=== PATIENT | male | born 1945 | race Caucasian/White ===

== ENCOUNTER → 2019-07-02 | Outpatient (CLI) | payer OTHER ==
[~2019-07-02] MED LIST: ASPIR 8181 MG PO; FLECAINIDE ACE100 MG PO; LIPITOR 20 MG T20 M1 PO; LISINOPRIL10 MG PO; LOPRESSOR100 M1 PO; METFORMIN HCL500 MG PO; OMEPRAZOLE 20 M20 M1 PO; XARELTO10 MG PO
== END ==
LOC: SJCVCIMAG 10:59
DX: I70.212 Atherosclerosis of native arteries of extremities with intermittent claudication, left leg (principal)

== ENCOUNTER → 2019-11-08 | Outpatient (CLI) | payer OTHER | LOC: HYPER 09:39 | PROVIDERS: ATTEND Emergency Medicine Emergency Medical Services | DX: E11.621 Type 2 diabetes mellitus with foot ulcer (principal); L97.522 Non-pressure chronic ulcer of other part of left foot with fat layer exposed; E11.40 Type 2 diabetes mellitus with diabetic neuropathy, unspecified; E11.51 Type 2 diabetes mellitus with diabetic peripheral angiopathy without gangrene; B35.1 Tinea unguium; M20.41 Other hammer toe(s) (acquired), right foot; M20.42 Other hammer toe(s) (acquired), left foot; Z87.891 Personal history of nicotine dependence; Z79.84 Long term (current) use of oral hypoglycemic drugs; Z95.1 Presence of aortocoronary bypass graft ==

== ENCOUNTER → 2019-11-29 | Outpatient (CLI) | payer OTHER | LOC: HYPER 09:52 | PROVIDERS: ATTEND Emergency Medicine | DX: E11.621 Type 2 diabetes mellitus with foot ulcer (principal); L97.522 Non-pressure chronic ulcer of other part of left foot with fat layer exposed; E11.40 Type 2 diabetes mellitus with diabetic neuropathy, unspecified; E11.51 Type 2 diabetes mellitus with diabetic peripheral angiopathy without gangrene; M20.41 Other hammer toe(s) (acquired), right foot; M20.42 Other hammer toe(s) (acquired), left foot; Z87.891 Personal history of nicotine dependence; Z95.1 Presence of aortocoronary bypass graft ==

== ENCOUNTER → 2019-12-14 | Outpatient (CLI) | payer OTHER | LOC: HYPER 10:01 | PROVIDERS: ATTEND Emergency Medicine | DX: E11.621 Type 2 diabetes mellitus with foot ulcer (principal); L97.522 Non-pressure chronic ulcer of other part of left foot with fat layer exposed; E11.40 Type 2 diabetes mellitus with diabetic neuropathy, unspecified; E11.51 Type 2 diabetes mellitus with diabetic peripheral angiopathy without gangrene; L84 Corns and callosities; B35.1 Tinea unguium; M20.41 Other hammer toe(s) (acquired), right foot; M20.42 Other hammer toe(s) (acquired), left foot; Z95.1 Presence of aortocoronary bypass graft; Z87.891 Personal history of nicotine dependence; Z79.84 Long term (current) use of oral hypoglycemic drugs ==

== ENCOUNTER → 2019-12-28 | Outpatient (CLI) | payer OTHER | LOC: HYPER 13:17 | PROVIDERS: ATTEND Emergency Medicine | DX: E11.621 Type 2 diabetes mellitus with foot ulcer (principal); L97.522 Non-pressure chronic ulcer of other part of left foot with fat layer exposed; L84 Corns and callosities; E11.40 Type 2 diabetes mellitus with diabetic neuropathy, unspecified; E11.51 Type 2 diabetes mellitus with diabetic peripheral angiopathy without gangrene; B35.1 Tinea unguium; E66.01 Morbid (severe) obesity due to excess calories; M20.41 Other hammer toe(s) (acquired), right foot; M20.42 Other hammer toe(s) (acquired), left foot; Z87.891 Personal history of nicotine dependence; Z95.1 Presence of aortocoronary bypass graft; Z85.6 Personal history of leukemia; Z68.38 Body mass index [BMI] 38.0-38.9, adult ==

== ENCOUNTER → 2020-01-05 | Outpatient (CLI) | payer OTHER | LOC: HYPER 10:47 | PROVIDERS: ATTEND Emergency Medicine | DX: E11.621 Type 2 diabetes mellitus with foot ulcer (principal); L97.522 Non-pressure chronic ulcer of other part of left foot with fat layer exposed; L84 Corns and callosities; B35.1 Tinea unguium; E11.51 Type 2 diabetes mellitus with diabetic peripheral angiopathy without gangrene; E11.40 Type 2 diabetes mellitus with diabetic neuropathy, unspecified; E66.01 Morbid (severe) obesity due to excess calories; M20.41 Other hammer toe(s) (acquired), right foot; M20.42 Other hammer toe(s) (acquired), left foot; Z87.891 Personal history of nicotine dependence; Z95.1 Presence of aortocoronary bypass graft; Z85.6 Personal history of leukemia; Z68.38 Body mass index [BMI] 38.0-38.9, adult ==

== ENCOUNTER → 2020-01-12 | Outpatient (CLI) | payer OTHER | LOC: HYPER 10:35 | PROVIDERS: ATTEND Emergency Medicine | DX: E11.621 Type 2 diabetes mellitus with foot ulcer (principal); L97.522 Non-pressure chronic ulcer of other part of left foot with fat layer exposed; L84 Corns and callosities; E11.40 Type 2 diabetes mellitus with diabetic neuropathy, unspecified; E11.51 Type 2 diabetes mellitus with diabetic peripheral angiopathy without gangrene; E66.01 Morbid (severe) obesity due to excess calories; B35.1 Tinea unguium; M20.41 Other hammer toe(s) (acquired), right foot; M20.42 Other hammer toe(s) (acquired), left foot; Z87.891 Personal history of nicotine dependence; Z95.1 Presence of aortocoronary bypass graft; Z68.38 Body mass index [BMI] 38.0-38.9, adult ==

== ENCOUNTER → 2020-01-17 | Outpatient (CLI) | payer OTHER | LOC: HYPER 13:56 | PROVIDERS: ATTEND Emergency Medicine | DX: E11.621 Type 2 diabetes mellitus with foot ulcer (principal); L97.522 Non-pressure chronic ulcer of other part of left foot with fat layer exposed; L84 Corns and callosities; E11.40 Type 2 diabetes mellitus with diabetic neuropathy, unspecified; E11.51 Type 2 diabetes mellitus with diabetic peripheral angiopathy without gangrene; B35.1 Tinea unguium; E66.01 Morbid (severe) obesity due to excess calories; M20.41 Other hammer toe(s) (acquired), right foot; M20.42 Other hammer toe(s) (acquired), left foot; Z87.891 Personal history of nicotine dependence; Z95.1 Presence of aortocoronary bypass graft; Z85.6 Personal history of leukemia; Z68.38 Body mass index [BMI] 38.0-38.9, adult ==

== ENCOUNTER → 2020-02-01 | Outpatient (CLI) | payer OTHER | LOC: HYPER 09:51 | PROVIDERS: ATTEND Specialist | DX: E11.621 Type 2 diabetes mellitus with foot ulcer (principal); I70.245 Atherosclerosis of native arteries of left leg with ulceration of other part of foot; L97.522 Non-pressure chronic ulcer of other part of left foot with fat layer exposed; L84 Corns and callosities; B35.1 Tinea unguium; E11.40 Type 2 diabetes mellitus with diabetic neuropathy, unspecified; E11.51 Type 2 diabetes mellitus with diabetic peripheral angiopathy without gangrene; M20.41 Other hammer toe(s) (acquired), right foot; M20.42 Other hammer toe(s) (acquired), left foot; Z87.891 Personal history of nicotine dependence; Z95.1 Presence of aortocoronary bypass graft; Z85.6 Personal history of leukemia ==

== ENCOUNTER → 2020-02-08 | Outpatient (CLI) | payer OTHER | LOC: HYPER 14:22 | PROVIDERS: ATTEND Emergency Medicine | DX: E11.621 Type 2 diabetes mellitus with foot ulcer (principal); I70.245 Atherosclerosis of native arteries of left leg with ulceration of other part of foot; L97.522 Non-pressure chronic ulcer of other part of left foot with fat layer exposed; L84 Corns and callosities; B35.1 Tinea unguium; E11.51 Type 2 diabetes mellitus with diabetic peripheral angiopathy without gangrene; E11.40 Type 2 diabetes mellitus with diabetic neuropathy, unspecified; E66.01 Morbid (severe) obesity due to excess calories; M20.41 Other hammer toe(s) (acquired), right foot; M20.42 Other hammer toe(s) (acquired), left foot; Z87.891 Personal history of nicotine dependence; Z95.1 Presence of aortocoronary bypass graft; Z85.6 Personal history of leukemia; Z68.38 Body mass index [BMI] 38.0-38.9, adult ==

== ENCOUNTER → 2020-02-16 | Outpatient (CLI) | payer OTHER | LOC: HYPER 08:38 | PROVIDERS: ATTEND Emergency Medicine | DX: E11.621 Type 2 diabetes mellitus with foot ulcer (principal); I70.245 Atherosclerosis of native arteries of left leg with ulceration of other part of foot; L97.522 Non-pressure chronic ulcer of other part of left foot with fat layer exposed; L84 Corns and callosities; B35.1 Tinea unguium; E11.51 Type 2 diabetes mellitus with diabetic peripheral angiopathy without gangrene; E11.40 Type 2 diabetes mellitus with diabetic neuropathy, unspecified; E66.01 Morbid (severe) obesity due to excess calories; M20.41 Other hammer toe(s) (acquired), right foot; M20.42 Other hammer toe(s) (acquired), left foot; Z87.891 Personal history of nicotine dependence; Z95.1 Presence of aortocoronary bypass graft; Z85.6 Personal history of leukemia; Z68.38 Body mass index [BMI] 38.0-38.9, adult ==

== ENCOUNTER → 2020-03-01 | Outpatient (CLI) | payer OTHER | LOC: HYPER 13:08 | PROVIDERS: ATTEND Emergency Medicine | DX: E11.621 Type 2 diabetes mellitus with foot ulcer (principal); I70.245 Atherosclerosis of native arteries of left leg with ulceration of other part of foot; L97.522 Non-pressure chronic ulcer of other part of left foot with fat layer exposed; L84 Corns and callosities; B35.1 Tinea unguium; E11.51 Type 2 diabetes mellitus with diabetic peripheral angiopathy without gangrene; E11.40 Type 2 diabetes mellitus with diabetic neuropathy, unspecified; E66.01 Morbid (severe) obesity due to excess calories; M20.41 Other hammer toe(s) (acquired), right foot; M20.42 Other hammer toe(s) (acquired), left foot; Z87.891 Personal history of nicotine dependence; Z95.1 Presence of aortocoronary bypass graft; Z85.6 Personal history of leukemia; Z68.38 Body mass index [BMI] 38.0-38.9, adult ==

== ENCOUNTER → 2020-03-08 | Outpatient (CLI) | payer OTHER | LOC: HYPER 13:02 | PROVIDERS: ATTEND Emergency Medicine | DX: E11.621 Type 2 diabetes mellitus with foot ulcer (principal); I70.245 Atherosclerosis of native arteries of left leg with ulceration of other part of foot; L97.522 Non-pressure chronic ulcer of other part of left foot with fat layer exposed; L84 Corns and callosities; B35.1 Tinea unguium; E11.51 Type 2 diabetes mellitus with diabetic peripheral angiopathy without gangrene; E11.40 Type 2 diabetes mellitus with diabetic neuropathy, unspecified; E66.01 Morbid (severe) obesity due to excess calories; M20.41 Other hammer toe(s) (acquired), right foot; M20.42 Other hammer toe(s) (acquired), left foot; Z87.891 Personal history of nicotine dependence; Z95.1 Presence of aortocoronary bypass graft; Z85.6 Personal history of leukemia; Z68.38 Body mass index [BMI] 38.0-38.9, adult ==

== ENCOUNTER → 2020-11-30 | Outpatient (CLI) | payer OTHER | LOC: HYPER 07:41 | PROVIDERS: ATTEND Emergency Medicine | DX: E11.621 Type 2 diabetes mellitus with foot ulcer (principal); L97.422 Non-pressure chronic ulcer of left heel and midfoot with fat layer exposed; S91.302A Unspecified open wound, left foot, initial encounter; L84 Corns and callosities; E11.40 Type 2 diabetes mellitus with diabetic neuropathy, unspecified; E11.51 Type 2 diabetes mellitus with diabetic peripheral angiopathy without gangrene; E66.01 Morbid (severe) obesity due to excess calories; B35.1 Tinea unguium; H54.8 Legal blindness, as defined in USA; I25.10 Atherosclerotic heart disease of native coronary artery without angina pectoris; M20.41 Other hammer toe(s) (acquired), right foot; M20.42 Other hammer toe(s) (acquired), left foot; Z85.6 Personal history of leukemia; Z87.891 Personal history of nicotine dependence; Z95.1 Presence of aortocoronary bypass graft; Z95.828 Presence of other vascular implants and grafts; Z79.84 Long term (current) use of oral hypoglycemic drugs; Z68.38 Body mass index [BMI] 38.0-38.9, adult; X58.XXXA Exposure to other specified factors, initial encounter; Y93.89 Activity, other specified; Y92.89 Other specified places as the place of occurrence of the external cause; Y99.8 Other external cause status ==

== ENCOUNTER → 2020-12-14 | Outpatient (CLI) | payer OTHER | LOC: SJCVCIMAG 08:21 | PROVIDERS: ATTEND Emergency Medicine | DX: I70.249 Atherosclerosis of native arteries of left leg with ulceration of unspecified site (principal); M79.605 Pain in left leg; M79.604 Pain in right leg ==

== ENCOUNTER → 2020-12-14 | Outpatient (CLI) | payer OTHER | LOC: HYPER 08:39 | PROVIDERS: ATTEND Emergency Medicine | DX: E11.621 Type 2 diabetes mellitus with foot ulcer (principal); L97.522 Non-pressure chronic ulcer of other part of left foot with fat layer exposed; S91.302D Unspecified open wound, left foot, subsequent encounter; E11.51 Type 2 diabetes mellitus with diabetic peripheral angiopathy without gangrene; E11.40 Type 2 diabetes mellitus with diabetic neuropathy, unspecified; L84 Corns and callosities; B35.1 Tinea unguium; M20.41 Other hammer toe(s) (acquired), right foot; M20.42 Other hammer toe(s) (acquired), left foot; H54.8 Legal blindness, as defined in USA; I25.10 Atherosclerotic heart disease of native coronary artery without angina pectoris; Z85.6 Personal history of leukemia; Z87.891 Personal history of nicotine dependence; Z79.84 Long term (current) use of oral hypoglycemic drugs; Z79.899 Other long term (current) drug therapy; X58.XXXD Exposure to other specified factors, subsequent encounter ==

== ENCOUNTER → 2021-01-11 | Outpatient (CLI) | payer OTHER | LOC: HYPER 07:26 | PROVIDERS: ATTEND Emergency Medicine | DX: E11.621 Type 2 diabetes mellitus with foot ulcer (principal); L97.522 Non-pressure chronic ulcer of other part of left foot with fat layer exposed; S91.302D Unspecified open wound, left foot, subsequent encounter; E11.51 Type 2 diabetes mellitus with diabetic peripheral angiopathy without gangrene; E11.40 Type 2 diabetes mellitus with diabetic neuropathy, unspecified; L84 Corns and callosities; H54.8 Legal blindness, as defined in USA; B35.1 Tinea unguium; M20.41 Other hammer toe(s) (acquired), right foot; M20.42 Other hammer toe(s) (acquired), left foot; I25.10 Atherosclerotic heart disease of native coronary artery without angina pectoris; Z85.6 Personal history of leukemia; Z95.1 Presence of aortocoronary bypass graft; Z87.891 Personal history of nicotine dependence; Z79.84 Long term (current) use of oral hypoglycemic drugs; Z79.899 Other long term (current) drug therapy; X58.XXXD Exposure to other specified factors, subsequent encounter ==

== ENCOUNTER 2021-01-20 08:01 | Inpatient (IN) | payer OTHER ==
[~2021-01-20] VITALS: Ht 175.3 cm; Wt 133.0 kg
--- NOTE | ~2021-01-20 | HC ---
[facility] [place] [address] CONSULTATION Name: FERNANDO VASQUEZ Room #: 458-P [facility] IN M.R.#: [id number] Admission: 01/20/21 Attend Phys: Katya Olson MD Discharge: Date of : 46 Report #: [id number] THIS REPORT FOR: cc: Jamie Nazario MD, Michele MD [place],Abhilash Church MD ~ DATE OF SERVICE: 01/24/2021 HISTORY OF PRESENT ILLNESS: The patient is a 75-year-old white male with worsening left foot ulcer, new cellulitis, underwent I and D on 01/22/2021 with removal of nonviable tissue. He has a history of diabetes mellitus with peripheral neuropathy and peripheral arterial disease. He has been followed by Podiatry. He currently is nonweightbearing on that left lower extremity. We are seeing him in rehabilitation medicine consultation. PAST MEDICAL HISTORY: Includes coronary artery disease, hypertension, hyperlipidemia, peripheral vascular disease, laparoscopic cholecystectomy, diabetes mellitus, chronic kidney disease stage III, lung nodule, cholecystectomy, peripheral neuropathy, chronic kidney disease, paroxysmal atrial fibrillation status post Watchman, left fem-pop, right fem-pop, legally blind. MEDICATIONS: Please see the full medication listing. ALLERGIES: No known drug allergies. SOCIAL HISTORY: Lives in a house with his , 3 steps in. She has some medical issues herself and uses a cane. The patient had been ambulatory without gait aids premorbidly, although he does have a cane and a walker and apparently has a wheelchair as well. REVIEW OF SYSTEMS: No current complaints of chest pain, shortness of breath or abdominal discomfort. PHYSICAL EXAMINATION: GENERAL: A 75-year-old white male in no obvious distress. VITAL SIGNS: Temperature 36.8, pulse 66, respirations 14, blood pressure 151/57. The patient is alert. HEENT: Appeared to be benign. NEUROLOGIC: Cranial nerves are grossly intact. Appears to be a reasonable historian. He has functional range of motion of both upper extremities, strength is a grade 4/5. DTRs trace to 1. Lower extremities, he is able to move that right lower extremity, no obvious focal weakness. No focal calf swelling. He does have decreased distal sensation with decreased proprioception in the right large toe. Left lower extremity, he is status post the I and D with the left foot dressed. He has decreased sensation of his toes and does [facility] [address] [place] [address] CONSULTATION Name: FERNANDO VASQUEZ Room #: 458-P [facility] IN .R.#: [id number] Admission: 01/20/21 Attend Phys: Katya Olson MD Discharge: Date of : 46 Report #: [id number] have better sensation from the mid calf proximally. He was noted to transfer with max assist to pivot to the wheelchair, although physical therapy apparently had him up doing some hopping nonweightbearing left lower extremity yesterday. ASSESSMENT: A 75-year-old white male with the following problem list: 1. Left foot ulcer with new cellulitis, status post incision and drainage 01/22/2021 of nonviable tissue, is noted to be nonweightbearing left lower extremity, although apparently is allowed to stand pivot for toilet transfers. 2. Diabetes mellitus complicated by peripheral neuropathy and known vasculopathy. 3. Soft tissue abscess, left medial foot, now status post incision and drainage. 4. Peripheral arterial disease. 5. Coronary artery disease, noted to be status post Watchman for paroxysmal atrial fibrillation. 6. Chronic kidney disease. 7. Hypertension. 8. Hyperlipidemia. PLAN: The patient is to receive further occupational therapy later this morning. We would like to see how he tolerates his therapies as I am uncertain if he would be a candidate for an acute 5 North rehabilitation stay or whether he should go to the skilled facility. He would need to be quite independent with transfers, mobility and ADLs as the has her own medical issues and would not be able to assist much. Thank you for asking us to assist. We will be following regarding his rehab therapy needs. By: [id number] Abhilash Barajas MD /nt
[~2021-01-20 08:01] MED LIST changes: +METFORMIN HCL500 M2 PO; -METFORMIN HCL500 MG PO
[2021-01-20 08:02] VITALS: BP 155/45
[2021-01-20 08:56] LABS: ABSOLUTE NEUTROPHILS 7.2 thou/uL (1.4-8.2); BASOPHILS 0.2 % (0.0-2.0); EOSINOPHILS 0.8 % (0.0-3.0); HEMATOCRIT 33.6 % (42.0-52.0); HEMOGLOBIN 11.4 gm/dL (14.0-18.0); LYMPHOCYTES 8.6 % (24.0-44.0); MCH 33.3 pg (26.0-34.0); MCHC 33.8 g/dL (28.0-37.0); MCV 98.6 fL (80.0-100.0); MONOCYTES 7.5 % (1.0-8.0); PLATELET COUNT 217 thou/uL (150-400); POLYS 82.9 % (36.0-66.0); RBC 3.41 mil/uL (4.50-6.00); RDW 13.1 % (10.5-14.5); WBC 8.7 thou/uL (4.0-11.0)
[2021-01-20 08:57] LABS: CALCIUM 8.3 mg/dL (8.5-10.1); CREATININE 1.4 mg/dL (0.7-1.3); POTASSIUM 4.1 mmol/L (3.5-5.1)
[2021-01-20 09:03] LABS: ALBUMIN 3.2 g/dL (3.4-5.0); TOTAL BILIRUBIN 0.9 mg/dL (0.2-1.0); TOTAL PROTEIN 6.6 g/dL (6.4-8.2)
[2021-01-20 11:21] VITALS: BP 135/54
[2021-01-20 11:46] VITALS: BP 159/71
--- NOTE | 2021-01-20 12:45 | NUR ---
ASSUMED PT CARE THIS AM. PT IS ALERT & ORIENTED X4. PT HAS IV SITE ON L WRIST RUNNING NS @75ML/HR. PT STATED HE USES CANE AT HOME. PT IS LEGALLY BLIND. PT AT THE BEDSIDE. FINISHED ADMISSION. PT SPECIAL DELIVERY WORKER DIS WOUND DRESSING AT THE ER ON HIS L FOOT. PT HAS SLEEP APNEA. PT IS ON ROOM AIR. PT USES URINAL. PT ON THE BED EATING LUNCH, BED ON THE LOWEST POSITION, SIDE RAILS UP, CALL LIGHT WITHIN REACH. WILL CONTINUE TO MONITOR PT. FOLLOW POC.
--- NOTE | 2021-01-20 12:48 | NUR ---
ASSUMED PT CARE AT 1145 FROM ED. PT IS ALERT & ORIENTED X4 AND LEGALLY BLIND. PT STATED THAT HE USES CANE AT HOME. PT HAS IV SITE ON L WRIST RUNNING NS @75ML/HR. PT IS ON ROOM AIR. PT HAS SLEEP APNEA AND USES CPAP. PT AUTOMOTIVE MECHANICAL ENGINEER DID WOUND DRESSING AT ER ON L FOOT. FINISHED ADMISSION. PT TOLERATED DIET WELL. PT USES URINAL. PT AT THE BEDSIDE. PT ON THE BED, BED ON THE LOWEST POSITION, SIDE RAILS UP, CALL LIGHT WITHIN REACH. WILL CONTINUE TO MONITOR PT. FOLLOW POC.
[2021-01-20] MEDS ORDERED: FUROSEMIDE 20 M20 MG PO (15:35)
[2021-01-20] MEDS ORDERED: IMDUR 60 MG TAB60 M1 PO (15:37)
[2021-01-20] MEDS ORDERED: TOPROL XL50 MG PO (15:38)
[2021-01-20] MEDS ORDERED: COZAAR 25 MG TA25 M1 PO (15:39)
[2021-01-20] MEDS ORDERED: RANOLAZINE ER500 MG PO (15:41)
[2021-01-20] MEDS ORDERED: SERTRALINE HCL100 MG PO (15:41)
[2021-01-20 16:04] VITALS: BP 127/56
[2021-01-20 20:51] VITALS: BP 13/58
--- NOTE | 2021-01-21 04:00 | NUR ---
POST OP DRSG PRESENT TO LEFT FOOT. PT STANDS BY THE BEDSIDE TO USE URINAL DENIES ANYPAIN. CONTINUEON ABTS AND IV FLUIDS. PPER DR PAL NOTE, HE WILL REMOVE PACKING FROM WOUND ON 01/21. WOUND PICTURE NOT YET TAKEN FOR THIS REASON.
--- NOTE | 2021-01-21 05:03 | HC ---
[facility] [place] [address] CONSULTATION Name: FERNANDO VASQUEZ Room #: 444-P ADM IN M.R.#: [id number] Admission: 01/20/21 Attend Phys: Katya Olson MD Discharge: Date of : 46 Report #: [id number] THIS REPORT FOR: cc: Jamie Nazario MD,Jamie Moran,Darrius Salazar MD ~ DATE OF SERVICE: 01/20/2021 INFECTIOUS DISEASE CONSULTATION ATTENDING PHYSICIAN: Dr. Olson. REASON FOR EVALUATION: Diabetic foot wound, complicated by infection. HISTORY OF PRESENT ILLNESS: Chart reviewed. The patient was examined. This is a 75-year-old gentleman with history of diabetes mellitus, has been complicated by fairly profound peripheral neuropathy. He has had an ongoing issue for 2 years involving his left foot. He states he stepped on a coral in the [facility]. He has had an ulcer since that time, initially underwent treatment by his director revenue. Subsequently, he has been seen by the wound care center over the last 7-8 months. He noted he had a followup of this with Dr. Chavez who felt that there was suspicion of infection. Subsequently, he was admitted for more definitive treatment as well as parenteral antibiotic therapy. He did undergo a bedside I and D today, it was noted to be purulent, medial aspect of the first MTP joint and sent for culture. Started empirically on therapy with vancomycin and Zosyn. He is not overtly ill. He noted he had some anorexia and decreased p.o. intake, although his weight has been stable. No pulmonary complaints. He does have ongoing issues with GI complaints with pain. This has been evaluated previously and he was not diagnosed. ALLERGIES: None. MEDICATIONS: Include Zosyn, hydrocodone, morphine, zolpidem, vancomycin. HOME MEDICATIONS: Include rivaroxaban, omeprazole, metoprolol, atorvastatin, aspirin, lisinopril, metformin, flecainide. PAST MEDICAL HISTORY: Includes hypertension, diabetes mellitus with known vasculopathy, previous fem-pop bypass, cardiac dysrhythmias with ablation, previous cholecystectomy. SOCIAL HISTORY: No illicit drug use. No tobacco use. Occasional ethanol. FAMILY HISTORY: Noncontributory. REVIEW OF SYSTEMS: Otherwise, unremarkable with the exception of the above. [address] [address] CONSULTATION Name: FERNANDO VASQUEZ Room #: 444-P [facility] IN M.R.#: [id number] Admission: 01/20/21 Attend Phys: Katya Olsno MD Discharge: Date of : 46 Report #: [id number] PHYSICAL EXAMINATION: GENERAL: He is alert, cooperative, sitting at the side of the bed. He is not overtly distressed. VITAL SIGNS: Temperature 100.4, pulse 82, respirations 18, blood pressure 127/56. SKIN: Warm, dry, no rashes. HEENT: Normocephalic. Extraocular muscles intact. NECK: Supple. LUNGS: Few scattered crackles, coarse sounds at the bases. HEART: Regular. I do not appreciate a murmur. ABDOMEN: Soft, is distended, somewhat tender. No peritoneal signs. GENITOURINARY AND RECTAL: Deferred. LABORATORY DATA: Arterial Dopplers of the lower extremity showed bypass graft in the region of the left common femoral artery, patent left common femoral artery and superficial femoral artery above the graft. Sed rate of 53. CRP of 127.5. Electrolytes: Sodium 138, potassium 4.1, chloride 102, bicarbonate is 24, anion gap of 12, BUN and creatinine 18 and 1.4, glucose of 254. LFTs are unremarkable. Albumin of 3.2, total protein 6.6. Estimated GFR 50. Coronavirus testing was negative. X-ray of the foot showed no acute osseous abnormalities. ____ swelling soft tissue of the distal foot with some subcutaneous emphysema. CBC: White count of 8.7, H and H 11.4 and 33.6, platelets of 217. ASSESSMENT AND PLAN: Deep infection involving the left foot in the setting of diabetes mellitus and peripheral neuropathy. He has undergone a bedside debridement. We will await those results. Continue empiric therapy. He is not overtly toxic at this point and initial imaging favors absence of osteomyelitis. He has had a chronic wound there in spite of aggressive wound care; certainly, presumably of multifactorial etiology. We will add incentive spirometry. He is at risk for other complications. <ELECTRONICALLY SIGNED> By: Darrius Moran MD 01/21/21 0503 [id number] Darrius Moran MD /nt
[2021-01-21 08:33] VITALS: BP 127/50
--- NOTE | 2021-01-21 08:47 | HC ---
[facility] [place] [address] CONSULTATION Name: FERNANDO VASQUEZ Room #: 444-P ADM IN M.R.#: [id number] Admission: 01/20/21 Attend Phys: Katya Olson MD Discharge: Date of : 46 Report #: [id number] THIS REPORT FOR: cc: Jamie Nazario MD, Michele MD [place],Tye Starr MD ~ DATE OF SERVICE: 01/20/2021 WOUND CARE CONSULTATION NOTE REASON FOR CONSULTATION: Left foot, infected diabetic foot ulcer with left foot cellulitis. HISTORY: The patient is a 75-year-old patient with peripheral vascular disease of the lower extremities, who has had vascular bypass surgery in [place] in the past. He is a diabetic with a chronic diabetic foot ulcer of the left foot on the plantar aspect over the first metatarsal head. He had seen Dr. Perkins [facility] on multiple occasions. He did see Dr. Karen Carcamo in the office this week. Since the time of that office visit, he has had increased redness, swelling, and drainage of the left foot, necessitating emergency room visit. He has been seen in the emergency room and had incision and drainage of the left foot wound over the left plantar first metatarsal head by Dr. Carcamo and the wound packed. His white blood count is 8.7, and he is afebrile. Lower extremity arterial Doppler has been done, which shows some diminished flow and can be compared with previous studies. Due to cellulitis of the left foot, lower leg, he is being admitted for IV antibiotics and observation. PAST MEDICAL HISTORY: 1. Diabetes mellitus type 2 with diabetic foot ulcer. 2. Diabetic peripheral neuropathy. 3. History of blindness. 4. Hypertension. 5. History of arrhythmia. 6. Cardiac ablation. ALLERGIES: No known drug allergies. LABORATORY: Creatinine 1.4, albumin 3.2, white blood count 8.7, hemoglobin 11.4, hematocrit 33.6. Plain x-ray of the foot shows no osseous abnormality. MRI of the left foot is ordered. PAST SURGICAL HISTORY: Bilateral femoral popliteal bypass. PHYSICAL EXAM: GENERAL: Shows a well-appearing elderly gentleman, alert, pleasant, conversant. VITAL SIGNS: Stable. He is afebrile. [address] [address] CONSULTATION Name: FERNANDO VASQUEZ Room #: 444-P ADM IN M.R.#: [id number] Admission: 01/20/21 Attend Phys: Katya Olson MD Discharge: Date of : 46 Report #: [id number] RESPIRATIONS: Unlabored. ABDOMEN: Soft. EXTREMITIES: Lower extremity examination shows some mild redness and swelling of the left lower leg and right foot. He has an ulcer of the left plantar foot of the first metatarsal head. Incision and drainage has been performed, and the wound packed by Dr. Carcamo. IMPRESSION: 1. Infected left foot diabetic plantar ulcer, now with incision and drainage in the emergency room by Dr. Carcamo. 2. Cellulitis of left foot and leg. 3. Diabetic peripheral neuropathy. 4. Peripheral vascular disease of left leg with left foot ulcer. 5. Mild protein calorie malnutrition. PLAN: Admit for IV antibiotics. We will consult Dr. Claire after the patient stabilized for vascular evaluation. MRI of the left foot is ordered to assess for any possibility of osteomyelitis, admitted for IV antibiotics. I will remove the wound pack tomorrow. Keep leg elevated and observe the foot wound and cellulitis. <ELECTRONICALLY SIGNED> By: Tye Lew MD 01/21/21 0847 1020 1102 Tye Lew MD /nt
--- NOTE | 2021-01-21 11:14 | NUR ---
ASSUMED PT CARE THIS AM. PT IS ALERT & ORIENTED X4. OT HAS IV SITE ON L WRIST RUNNING NS @75ML/HR. PT IS LEGALLY BLIND AND USES CANE. PT IS ACCUCHECK ACHS. PT HAS SLEEP APNEA AND USES CPAP AT NIGHT. CALLED CONSULT THIS AM PER DR ORDERED. PT NO C/O OF PAIN, NAUSEA AND VOMITING. INFORMED DR TO RESUME HOME MEDICATION. WILL CONTINUE TO MONITOR PT. FOLLOW POC.
[2021-01-21] MEDS ORDERED: GLIPIZIDE5 MG PO (11:23)
--- NOTE | 2021-01-21 13:02 | HC ---
[facility] [place] [address] CONSULTATION Name: FERNANDO VASQUEZ Room #: 444-P ADM IN M.R.#: [id number] Admission: 01/20/21 Attend Phys: Katya Olson MD Discharge: Date of : 46 Report #: [id number] THIS REPORT FOR: cc: Jamie Nazario MD, Michele MD Jameson, Stephanie L. DPM ~ DATE OF SERVICE: 01/20/2021 HISTORY OF PRESENT ILLNESS: 75 year old male admitted today, 01/19/2021 with left diabetic foot ulcer with cellulitis and possible bone infection. He was seen in my podiatry office yesterday where he had cellulitis and infection and I recommended admission. He has minimal pain to his left foot as he has underlying neuropathy. He was seen in Dr. Tucker's office last week and is followed with him for years. He has had this chronic off and on wound for approximately 2 years. He has had a history of stents to bilateral lower extremities in the past also. He denies any fever, chills, nausea, vomiting. On his lower extremity physical exam, right foot without any breaks in the skin. MIKI: The left foot has an ulceration under big toe joint with redness welling and drainage. . There is some mild tenderness to this wound. With bedside I&D to site left foot: The wound has sloughing like fibroglanular base with some undermining and some yellow-green drainage. With a deep incision and drainage extending about 2 cm distal and proximal. There was some mild serosanguineous drainage expressed coming more so from the proximal medial aspect. With further incision and drainage, there was no further drainage expressed except blood . There was also a 1 cm more medial first MPJ incision made over the most elevated erythematous area without any pus expressed. There were no deep further loculations present. The capillary fill time to all toes is less than 3 seconds. The sensation is diminished bilateral lower extremities. Muscle strength +5/5 in all pedal directions. ASSESSMENT AND PLAN: We have a diabetic left foot ulceration with cellulitis and possible osteomyelitis and abscess. The patient currently afebrile. No leukocytosis. Left foot incision and drainage performed at bedside shortly after admission. [address] [address] CONSULTATION Name: FERNANDO VASQUEZ Room #: 444-P ADM IN M.R.#: [id number] Admission: 01/20/21 Attend Phys: Katya Olson MD Discharge: Date of : 46 Report #: [id number] See procedure note for detail. Wound repacked with quarter-inch iodoform packing. Keep dressing clean, dry and intact to left foot. Nonweightbearing left foot at this time and in future, we will likely transition to bathroom privileges only with a partial forefoot offload wedge shoe. Recommend wound care on board, Dr. Lew at bedside to see wound at this time too. Infectious disease on board. Wound culture obtained in my office yesterday and also again today here at hospital. Recommend MRI, which order is pending. Optimize his nutrition and good glucose control. In regards to vascular, he has had a history of bilateral stents. New arterial duplex has recently been performed. Pending MRI results, but the patient understands he may need further surgery including incision and drainage and/or bone resection. We will follow. Karen Carcamo <ELECTRONICALLY SIGNED> By: Karen Carcamo DPM 01/21/21 1302 1027 [id number] Karen Carcamo DPM /nt
[2021-01-21 17:27] VITALS: BP 129/53
[2021-01-21 20:46] VITALS: BP 126/44
--- NOTE | 2021-01-22 03:45 | NUR ---
PT IS A/O X4 AND IS NWB TO HIS LEFT FOOT. STANDS AND PIVOTS TO BSC. USES URINAL AT THE BEDSIDE. MEDICATIONS GIVEN DIRECTED. DRSG TO FOOT C/D/I. ELEVATED ON PILLOWS. PT IS PLEASANT AND COOPERATIVE. DENIES C/O PAIN OR DISCOMFORT. FALL PRECAUTIONS IN PLACE, CALL LIGHT IS WITHIN REACH. PT C/O INSOMNIA. PRN SLEEP MEDICATION GIVEN DIRECTED.
[2021-01-22 05:29] VITALS: BP 157/61
[2021-01-22 08:00] VITALS: BP 140/77
[2021-01-22 10:07] LABS: CALCIUM 7.8 mg/dL (8.5-10.1); CREATININE 1.1 mg/dL (0.7-1.3)
[2021-01-22 17:40] VITALS: BP 120/43
--- NOTE | 2021-01-22 18:34 | NUR ---
TO THE UNIT FROM OR WHERE PATIENT HAD I&D DONE ON LEFT FOOT POST ANGIOGRAM; GROIND R C/D/I.. DRESSING TO L FOOT C/D/I. PT ORIENTED TO ROOM AND BEDSPACE. KEVEN DIET AND FLUIDS. NO CO'S OF PAIN OR NAUSEA. AT THE BEDSIDE - VOIDED PER URINAL. NO CO'S AT THE PRESENT TIME.
[2021-01-22 19:49] VITALS: BP 135/41
[2021-01-23 00:14] VITALS: BP 124/61
--- NOTE | 2021-01-23 01:49 | NUR ---
PT ALERT AND ORIENTED X4. VSS AFEBRILE. UNLABORED ON RA. NO C/O PAIN. LEFT FOOT DRESSING REMAINS C/D/I/. RIGHT GROIN DRESSING REMAINS C/D/I/. NO HEMATOMA NOTED. R PEDAL PULSE 1+. CLEARLY AUDIBLE WITH DOPPLER . LEFT FOOT PULSE AUDIBLE WITH DOPPLER ABOVE THE SURGICAL DRESSING AND POPLITEAL AND GROIN.ALL EXTREMITIES PINK WARM AND DRY. IV ABX INFUSING. BED DOWN CALL LIGHT IN REACH. BED ALARM IS ON.
[2021-01-23 04:05] VITALS: BP 150/61
--- NOTE | 2021-01-23 05:27 | NUR ---
PT HAS HAD NO C/O TONIGHT OF PAIN. DRESSING TO LEFT FOOT REMAINS C/D/I/. RIGHT GROIN DRESSING C/D/I NO DRAINAGE. NO HEMATOMA NOTED. VSS AFEBRILE. IV ABX INFUSING. PROGRESSING SLOWLY TOWARDS D/C GOALS.
[2021-01-23 05:57] LABS: FOLIC ACID 41.8 ng/mL (8.6-58.9)
[2021-01-23 07:00] VITALS: BP 128/52
[2021-01-23 11:00] VITALS: BP 146/54
--- NOTE | 2021-01-23 13:40 | NUR ---
TRANSFER ORDER TO 4W IN PER HOUSE SUP. PT ALERT AND ORIENTED X4, DENIES PAIN. ON ROOM AIR, NO SIGNS OF DISTRESS. REPORT GIVEN TO MARCOS GRUBBS ON THE 4 TH FLOOR
--- NOTE | 2021-01-23 14:29 | NUR ---
Nutrition: pt S/P I&D Left foot wound. PMH: PAD, DM, CAD, HTN, HLD, CKD. Eating well, 70-90% of meals on heart healthy diet. BG 112-263. Will add Carb Controlled to diet order. Extreme class 3 obesity with BMI 43. Reviewed protein needs for wound healing. Pt would like to try ensure max daily, will order. Pt was in process of moving to 4th floor during visit so education needs not addressed. RD available if needs arise but place as low risk.
[2021-01-23 14:45] VITALS: BP 127/48
--- NOTE | 2021-01-23 16:15 | NUR ---
Case opened to follow for dc planning. Cm role introduced to the pt. He is a&ox4 and indicates he lives at home with his spouse. He reports he is concerned about his change in mobility and care needs and his is recovering from a recent surgery. He is interested in 5N acute rehab or SNF at [facility]. He is s/p I/D of lle abcess and cultures are pending. He is uncertain if he will need iv atb and he is nwb lle at this time. He is working with therapy. His home has 3 steps to enter. He is normally indep without an assistive device but has a w/c. rwalker and cane if needed. He is also legally blind and relies on his to drive him to weekly wound care appts. 5N eval requested. Awaiting ID imput regarding any iv atb needs at dc. Pt transfered to 4W this afternoon from CCU. Will follow.
[2021-01-23 19:10] VITALS: BP 128/55
--- NOTE | 2021-01-24 03:39 | NUR ---
Assumed pt care at 1900. A/OX4,VSS. Denies pain on assessment.Dsg C/D/I on left foot,Neuro checks WNL. C/o insomnia,meidcated with ambien with relief noted,been resting eyes closed on reassessment. NBT on LLE,hops with RW as needed. Continent of B&B.Fall precautions in place,will continue to monitor pt.
[2021-01-24 07:00] VITALS: BP 151/57
[2021-01-24 10:47] LABS: HEMATOCRIT 27.8 % (42.0-52.0); HEMOGLOBIN 9.5 gm/dL (14.0-18.0); MCHC 34.4 g/dL (28.0-37.0); RBC 2.8 mil/uL (4.50-6.00); RDW 13.4 % (10.5-14.5); WBC 4.6 thou/uL (4.0-11.0)
--- NOTE | 2021-01-24 12:15 | NUR ---
ASSUMED CARE AT 0700. PATIENT IS ALERT AND ORIENTED X4. PATIENT MARINA'S, CONSUMER AFFAIRS SPECIALIST ARE EQUAL. LUNGS ARE CLEAR AND DEMINISHED. ABD IS SOFT WITH BSX4. PATIENT IS AVOIDING CARLOS COLORED URINE PER URINAL. PATIENT HAS WOUND DRESSING TO LEFT FOOT. PATIENT IS CONTACT ISOLATION FOR MRSA. PATIENT HAS IV IN LEFT FORARM IV SITE WITHOUT REDNESS OR SWELLING. NS INFUSING AT 75 CC/HR. FALL AND SAFETY PROTOCOLS IN PLACE. DENIES PAIN AT THIS TIME. CONTINUES TO PROGRESS SLOWLY TOWARDS D/C GOALS. WILL CONTINUE TO MONITER.
--- NOTE | 2021-01-24 12:58 | NUR ---
5N CONSULT RECEIVED. Pt SEEN BY DR. NGUYEN. Pt DOES NOT HAVE MEDICAL NECESSITY FOR ACUTE REHAB. RECOMMEND SNF. DISCUSSED W/ CASE MGMT. THANK YOU FOR THIS REFERRAL.
--- NOTE | 2021-01-24 15:58 | NUR ---
5N ASSESSED AND INDICATED THAT THEY WOULD RECOMMEND SKILLED POST ACUTE CARE STAY. CM MET WITH PT AND REACHED OUT TO SPOUSE TO PROVIDE LIST OF SKILLED OPTIONS.
[2021-01-24 17:00] VITALS: BP 129/51
[2021-01-24 19:29] VITALS: BP 155/58
--- NOTE | 2021-01-25 04:29 | NUR ---
Assumed pt care at 1900. A/OX4,pleasant. VSS. Denies pain on assessment,dsg C/D/I on left foot. Pt is up with AX1, NWB to LLE,still waiting on heel offloading boot from [facility]. Fall precautions in place,calls approp for help. Resting quietly w/o any distress noted,will continue to monitor pt.
[2021-01-25 07:46] VITALS: BP 158/57
[2021-01-25 08:11] VITALS: BP 158/57
[2021-01-25 10:15] LABS: CREATININE 1.3 mg/dL (0.7-1.3); POTASSIUM 3.7 mmol/L (3.5-5.1)
[2021-01-25] MEDS ORDERED: LINEZOLID600 MG PO (12:51)
[2021-01-25] MEDS ORDERED: CIPRO500 M1 PO (12:51)
--- NOTE | 2021-01-25 13:32 | NUR ---
5N IS ABLE TO ACCEPT PT FOR ADMISSION THIS DAY. CM NOTIFIED PT HE IS AWARE AND AGREEABLE. ORDERS ENTERED. NURSE GIVEN NUMBER FOR REPORT. PT TO DC TO 5N ACUTE REHAB THIS DAY. NO OTHER CM INTERVENTION INIDCATED AT THIS TIME. CASE CLOSED.
--- NOTE | 2021-01-25 14:03 | NUR ---
Alert and orientated X4, conversive, calm and cooperative. Breath sounds clear. Reg HR auscultated. Color pink with brisk capillary refill and palpable peripheral pulses. IV infusing per L forearm, site soft and flat, flushes easily. Yellow urine per urinal. Active bowel sounds over soft, rounded abdomen. Dressing per L foot dry and intact.
== END 2021-01-25 15:42 | DRG 623 ==
LOC: ER 08:01 → 2N 09:49 → 4S 09:49 → EROBS 09:49 → 4S 11:38 → 2N 01-22 16:54 → 4W 01-23 14:11
PROVIDERS: Emergency Medicine; Nurse Practitioner; Specialist; ADMIT Hospitalist; ATTEND Hospitalist
PROC: 5A09357 Assistance with Respiratory Ventilation, Less than 24 Consecutive Hours, Continuous Positive Airway Pressure (ICD-10-PCS; principal; 2021-01-20)
PROC: 0JBR0ZZ Excision of Left Foot Subcutaneous Tissue and Fascia, Open Approach (ICD-10-PCS; principal; 2021-01-20)
PROC: B41D1ZZ Fluoroscopy of Aorta and Bilateral Lower Extremity Arteries using Low Osmolar Contrast (ICD-10-PCS; 2021-01-22)
PROC: B4181ZZ Fluoroscopy of Bilateral Renal Arteries using Low Osmolar Contrast (ICD-10-PCS; 2021-01-22)
DX: E11.621 Type 2 diabetes mellitus with foot ulcer (principal); L03.116 Cellulitis of left lower limb; L02.612 Cutaneous abscess of left foot; E44.1 Mild protein-calorie malnutrition; Z68.41 Body mass index [BMI] 40.0-44.9, adult; E11.22 Type 2 diabetes mellitus with diabetic chronic kidney disease; I12.9 Hypertensive chronic kidney disease with stage 1 through stage 4 chronic kidney disease, or unspecified chronic kidney disease; N18.30 Chronic kidney disease, stage 3 unspecified; D64.9 Anemia, unspecified; Z20.822 Contact with and (suspected) exposure to COVID-19; I25.10 Atherosclerotic heart disease of native coronary artery without angina pectoris; E78.5 Hyperlipidemia, unspecified; E11.51 Type 2 diabetes mellitus with diabetic peripheral angiopathy without gangrene; E11.42 Type 2 diabetes mellitus with diabetic polyneuropathy; I48.0 Paroxysmal atrial fibrillation; R53.81 Other malaise; F32.9 Major depressive disorder, single episode, unspecified; H35.30 Unspecified macular degeneration; E55.9 Vitamin D deficiency, unspecified; E11.69 Type 2 diabetes mellitus with other specified complication; Z90.49 Acquired absence of other specified parts of digestive tract; Z87.891 Personal history of nicotine dependence; Z80.52 Family history of malignant neoplasm of bladder; Z79.899 Other long term (current) drug therapy
CPT/HCPCS: 10047; 10081; 10195; 50101; 50386; 57091

== ENCOUNTER 2021-01-25 14:30 | Inpatient (IN) | payer OTHER ==
[~2021-01-25] VITALS: Ht 175.3 cm; Wt 117.9 kg
--- NOTE | ~2021-01-25 | PLAN ---
[facility] [place] [address] REHAB UNIT PLAN OF CARE Name: FERNANDO VASQUEZ Room #: 503-P ADM IN M.R.#: [id number] Admission: 01/25/21 Attend Phys: Abhilash Barajas MD Discharge: Date of : 47 Report #: [id number] THIS REPORT FOR: cc: Jamie Nazario MD,Jamie Barajas,Abhilash Church MD ~ DATE OF SERVICE: 01/27/2021 PROGRESS NOTE/OVERALL PLAN OF CARE HISTORY OF PRESENT ILLNESS: The patient is seen in followup. He was seen earlier, was in no distress. Last recorded temperature 36.6, pulse 59, respirations 20, blood pressure 156/73. He was in no distress, was breathing without difficulty. He has the right foot special shoe with dressing. He is up with a walker. Transfers have been min assist with gait, contact guard 200 feet with a scooter in physical therapy. In occupational therapy, lower body dressing is contact guard with upper body dressing supervision. ASSESSMENT: 1. Medical complexity with generalized debilitation. 2. Left foot ulcer with new cellulitis, status post incision and drainage 01/22/2021, heel weightbearing. 3. Type 2 diabetes mellitus with peripheral neuropathy. 4. Coronary artery disease with atrial fibrillation with a history of a Watchman. 5. Chronic kidney disease. 6. Hypertension. 7. Hyperlipidemia. PLAN: The overall plan of care is based on the pre-admit screen and information garnered from therapy assessments. 1. Estimated length of stay is probably around 14 days. 2. Medical prognosis reasonably good. 3. Anticipated interventions includes the interdisciplinary acute inpatient rehabilitation program. 4. Anticipated functional outcomes would be for the patient to become modified independent with transfers, mobility, and ADLs with heel weightbearing left lower extremity. 5. Discharge destination would be back home with his , although living is on one level. 6. Expected therapy by discipline includes PT and OT 1-1/2 hours per day each 5 days a week throughout the duration of the acute inpatient rehabilitation stay. ADDENDUM: The patient's prognosis for significant practical improvement within a reasonable period of time appears good. Given the patient's complex medical condition and risk of further medical complication, rehabilitation services [address] [address] REHAB UNIT PLAN OF CARE Name: FERNANDO VASQUEZ Room #: 503-P ADM IN .R.#: [id number] Admission: 01/25/21 Attend Phys: Abhilash Barajas MD Discharge: Date of : 47 Report #: [id number] could not be safely provided at the lower level of care such as a [facility] facility. By: [id number] Abhilash Barajas MD /nt
[~2021-01-25 14:30] MED LIST changes: +CIPRO500 M1 PO; +COZAAR 25 MG TA25 M1 PO; +FUROSEMIDE 20 M20 MG PO; +GLIPIZIDE5 MG PO; +IMDUR 60 MG TAB60 M1 PO; +LINEZOLID600 MG PO; +RANOLAZINE ER500 MG PO; +SERTRALINE HCL100 MG PO; +TOPROL XL50 MG PO
--- NOTE | 2021-01-25 16:42 | NUR ---
1600 ADMITTED PATIENT TO ROOM 503. PATIENT IS ALERT AND ORIENTED X3. PATIENT MARINA'S, HOME SUPERVISOR ARE EQUAL. LUNGS ARE CLEAR AND DEMINISHED. ABD IS SOFT WITH BSX4. S.L. IS PATIENT IN HIS LEFT WRIST. PATIENT HAS A LEFT DIABETIC FOOT WOUND WRAPED WITH SAUL WRAP. CONSENTS ARE SIGNED. CALL LIGHT IN REACH. FALL AND SAFETY [id number] IN PLACE. DENIES PAIN AT THIS TIME. PT/OT/ST EVALS TO BE DONE IN A.M. WILL CONTINUE TO MONITER.
[2021-01-25 19:17] VITALS: BP 159/61
--- NOTE | 2021-01-25 23:43 | NUR ---
PT ASSESSMENT COMPLETED AND VSS. MEDS GIVEN ORDERED AND WELL TOLERATED. FALL PRECAUTIONS IN PLACE. PT UPSET BECAUSE HE HAS URGENCY AND URINATED BEFORE STAFF COULD GET TO THE ROOM. SPENT TIME TALKING WITH PT ABOUT HIS CONCERNS AND NOW PT IS NOT UPSET. PT WANTS TO ASK DR NGUYEN IF HE CAN STAND AT THE BEDSIDE TO VOID WITHOUT HAVING TO CALL BECAUSE OF HIS URGENCY. PT VOIDING LARGE AMOUNT OF YELLOW URINE PER URINAL. SLEEPING WELL. WILL CONTINUE TO MONITOR FREQUENTLY. LEFT FOOT DRESSING DRY AND INTACT.
--- NOTE | 2021-01-26 01:20 | NUR ---
PT LYING IN BED. VOIDING PER URINAL. DENIES PAIN. RESTING COMFORTABLY. FREQUENT OBSERVATION.
[2021-01-26 06:20] LABS: HEMOGLOBIN 9.5 gm/dL (14.0-18.0); MCH 33.9 pg (26.0-34.0); MCHC 35.3 g/dL (28.0-37.0); MCV 96.1 fL (80.0-100.0); RBC 2.8 mil/uL (4.50-6.00); RDW 13.2 % (10.5-14.5); WBC 4.4 thou/uL (4.0-11.0)
[2021-01-26 06:46] LABS: CALCIUM 8.1 mg/dL (8.5-10.1); CREATININE 1.1 mg/dL (0.7-1.3); POTASSIUM 3.8 mmol/L (3.5-5.1)
--- NOTE | 2021-01-26 06:50 | NUR ---
Chart review. New to acute rehab. Dx left foot ulcer. Unable to visit with him r/t resting with eye closed. Prior to hospital, he lives with his theresa # [phone]. House has 3 steps to enter and then no stairs inside. Poor vision r/t legally blind and his does the driving. Has roller walker, cane and wheelchair at home. Unknow if he had any home health or private duty in the past. He has been to outpt wound care. Manage his own medication. PCP Dr Rosalind Nazario. Will cont following as needed for dc needs.
[2021-01-26 07:15] VITALS: BP 172/63
--- NOTE | 2021-01-26 10:50 | NUR ---
Nutrition: pt transferred to rehab unit, S/P I&D left foot wound. PMH: PAD, DM, HTN, CAD, HLD, CKD. Eating well, 70-100% of meals on Carb controlled diet. Has ensure max ordered at dinner to assist with wound healing needs. Understands increased protein needs. Obesity class 2 with BMI 38. 260# per standing scale more accurate than prior bedscale weight. Pt able to order meals if desired. Place as low nutrition risk.
[2021-01-26 19:22] VITALS: BP 182/72
[2021-01-26 20:00] VITALS: BP 164/66
--- NOTE | 2021-01-27 03:08 | NUR ---
01-26-21 CARE TRANSFERRED 1899 OBSERVED PT SITTING IN RECLINER. VS REVIEWED AND NOTED B/P ELEVATED FROM PT BASELINE, VS RETAKEN = VSS, RR EVEN AND NONLABORED ON RA. PT DENIES PAIN. PT LUNGS CLEAR, HT RR, ABD SOFT AND ACTIVE. DURING MEDICATION ADMIN PT HAD NO DIFFICULTIES, OBSERVED PT TRANSITION SMOOTH FROM CHAIR TO BED. PT DENIED NEEDING ANY FURTHER ASSISTANCE AT THIS TIME. CALL LIGHT WITHIN REACH, BED LOCKED AND ALARM ON. PT WILL CONTINUE TO BE MONITOR.
[2021-01-27 08:00] VITALS: BP 156/72
--- NOTE | 2021-01-27 09:14 | NUR ---
PT SITTING UP IN CHAIR THIS AM. PT HAS SPECIAL SHOE TO RT FOOT DRESSING IS INTACT. PT DENIES ANY PAIN TO RT FOOT. PT UP WITH WALKER. PT TOOK MEDS WITH THIN WATER.
[2021-01-27 19:22] VITALS: BP 175/62
--- NOTE | 2021-01-28 00:21 | NUR ---
PT ALERT AND ORIENTED X 4. AMB TO BR WITH ASSIST X 1. WEIGHT BEARING SHOE ON LEFT FOOT. DRESSING TO LEFT FOOT C/D/I. PT DENIES PAIN OR DISCOMFORT. HAS URINARY FREQUENCY. BED ALARM ON FOR SAFETY. PT CHECKED ON HOURLY ROUNDS.
[2021-01-28 09:15] VITALS: BP 146/53
[2021-01-28 09:49] VITALS: BP 146/53
--- NOTE | 2021-01-28 16:01 | NUR ---
PT A&OX4. PT STATED HIS BLADDER FELT FULL. BLADDER SCAN REVEALED 476, PT VOIDED 200, PVR WAS 358. PAGED DR. TELLO, DR. RIVERA RETURNED CALL STATED TO PLACE PT ON FLOMAX DAILY. EDUCATED PT ON POSSIBLE HYPOTENSION SIDE EFFECT OF FLOMAX, LIGHT HEADEDNESS AND/OR DIZZINESS. PT STATES UNDERSTANDING, WILL CONTINUE TO MONITOR.
[2021-01-28 21:35] VITALS: BP 157/63
[2021-01-28 23:44] LABS: URINE BILIRUBIN NEGATIVE (Negative); URINE BLOOD NEGATIVE (Negative); URINE CLARITY CLEAR; URINE COLOR YELLOW; URINE GLUCOSE-RANDOM* NEGATIVE (Negative); URINE KETONES NEGATIVE (Negative); URINE LEUKOCYTES-REFLEX NEGATIVE (Negative); URINE NITRITE-REFLEX NEGATIVE (Negative); URINE PROTEIN (DIPSTICK) NEGATIVE (Negative); URINE UROBILINOGEN 0.2 E.U./dl (0.2-1.0)
--- NOTE | 2021-01-29 00:02 | NUR ---
PT ALERT AND ORIENTED X 4. AMB TO BR WITH ASSIST X 1 WITHOUT DIFFICULTY. HEEL WEIGHT BEARING SHOE ON LEFT FOOT. LEFT FOOT DRESSING C/D/I. PT VOMITED SMALL AMT BROWN LIQUID AT 2150. REPORTS SLIGHT NAUSEA. REFUSED TO HAVE EPIC CUPID ANALYST CALLED. TOOK SOME SPRITE AND CRACKERS WITH SOME RELIEF NOTED. PT THINKS NAUSEA MIGHT BE FROM FLOMAX WHICH WAS STARTED IN EVENING. UA SENT TO LAB AND IT WAS NEGATIVE. PT DENIES PAIN OR DISCOMFORT. BED ALARM ON FOR SAFETY. PT APPEARS TO BE SLEEPING ON HOURLY ROUNDS.
[2021-01-29 07:42] VITALS: BP 151/67
--- NOTE | 2021-01-29 08:56 | NUR ---
PT SITTING IN CHAIR EATING BREAKFAST. PT DENIES ANY PAIN TO LEFT FOOT. PT HAS SPECIAL SHOE TO LEFT FOOT, NOT WEARING RT SURGICAL SHOE AT THIS TIME. PT STATED HE WAS SICK LAST NIGHT AND VOMITED. PT DIDN'T KNOW WHAT IT WAS FROM. PT STATED HE HAS HAD X2 BMS AND DOESN'T FEEL CONSTIPATED. REFUSED MIRALAX THIS AM. PT STEADY ON FEET WITH SPECIAL SHOE TO LEFT FOOT. DRESSINGS ARE TO BE DONE DAILY.
--- NOTE | 2021-01-29 15:17 | NUR ---
PT VOMITED AGAIN, PT HAS YELLOW EMESIS WITH MUCOUS. AT BEDSIDE AND WANTING TO KNOW IF IT IS THE FLOMAX. PT IS ON X2 ABX ALSO.
--- NOTE | 2021-01-29 15:20 | NUR ---
NOTIFIED SAMMI SCHMITZ ABOUT THE EMESIS.
--- NOTE | 2021-01-29 18:00 | NUR ---
ADM ZOFRAN 4MG PO FOR NAUSEA. PT DIDN'T WANT TO EAT DINNER AND DIDN'T WANT METFORMIN MEDICATION.
[2021-01-29 19:08] VITALS: BP 142/48
--- NOTE | 2021-01-29 23:25 | NUR ---
Assumed care on 01/29/21, A&Ox4 Cooperative with care and compliant with medications, taking meds whole with thin water. Initially denies need for pain meds, then @ 2200 requests tylenol for 3/10 head ache. Will be NPO at midnight for tests in the a.m. FSBS @ 75. 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
[2021-01-30 07:19] VITALS: BP 140/60
--- NOTE | 2021-01-30 10:21 | NUR ---
PT WAS NPO THIS AM FOR CT SCAN OF ABD. PT SITTING IN CHAIR. PT ATE 50% OF BREAKFAST AND TOOK MEDS THIS AM WITH WATER. PT STATED BM YESTERDAY. PT DENIES ANY NAUSEA OR PAIN AT THIS TIME. PT HAS FEET ELEVATED UP IN RECLINER. PT REFUSED FLOMAX AND STATED THAT HIS DIDN'T WANT HIM TO TAKE IT DUE TO POSS CAUSE OF DEMENTIA. LUDMILA ENROUTE CONTROLLER STATED THAT FLOMAX BENEFIT IS MORE THAN NOT TAKING IT AND GETTING RECURRENT UTI'S.
--- NOTE | 2021-01-30 14:03 | NUR ---
team meeting, recommendation: mod i in room with fww and special shoe. Not mod with scooter yet. 75ft to 200 ft with scooter assist and is weight bear through the heel. No dme needs. dc 02/01 hh ( pt, ot, nursing). to have training with nursing for wound care.
[2021-01-30 18:56] VITALS: BP 133/48
--- NOTE | 2021-01-30 22:51 | NUR ---
Assumed care on 01/30/21 @ 1900, Awake, Alert and Oriented x4, VSS. Showed a photograph of his granddaughter(s) and displayed pride in how beautiful she is. Compliant with medication administration taking meds whole with thin water. Retired to bed @ HS, and reports that his nausea is not bad currently, but he fears it could get worse. Education provided that Zofran is available if he experiences nausea. Bed in low position, bed alarm set, call light within reach.
[2021-01-31 07:47] LABS: BASOPHILS 0.3 % (0.0-2.0); EOSINOPHILS 3.4 % (0.0-3.0); HEMATOCRIT 28.5 % (42.0-52.0); HEMOGLOBIN 9.7 gm/dL (14.0-18.0); LYMPHOCYTES 12.9 % (24.0-44.0); MCH 33.2 pg (26.0-34.0); MCV 97.7 fL (80.0-100.0); MONOCYTES 8.6 % (1.0-8.0); PLATELET COUNT 288 thou/uL (150-400); POLYS 74.8 % (36.0-66.0); RBC 2.92 mil/uL (4.50-6.00); RDW 13.5 % (10.5-14.5); WBC 6.7 thou/uL (4.0-11.0)
[2021-01-31 08:00] VITALS: BP 153/57
[2021-01-31 08:08] LABS: ALBUMIN 2.7 g/dL (3.4-5.0); CALCIUM 8.1 mg/dL (8.5-10.1); CREATININE 1.2 mg/dL (0.7-1.3); MAGNESIUM 1.3 mg/dL (1.8-2.4); POTASSIUM 3.7 mmol/L (3.5-5.1); TOTAL BILIRUBIN 0.4 mg/dL (0.2-1.0); TOTAL PROTEIN 5.8 g/dL (6.4-8.2)
--- NOTE | 2021-01-31 11:37 | NUR ---
PT ALERT AND ORIENTED TIMES FOUR. VSS. PT DENIES PAIN/SOA. PT TOLERATES MEDS AND MEALS. PT WORKED WELL WITH PT/OT TODAY. WILLL CONTINUE TO MONITOR.
[2021-01-31 14:14] VITALS: BP 153/57
[2021-01-31] MEDS ORDERED: VITAMIN D325 MC2 PO (16:54)
[2021-01-31] MEDS ORDERED: FLOMAX0.4 MG PO (16:54)
[2021-01-31] MEDS ORDERED: MIRALAX17 GM PO (16:54)
[2021-01-31] MEDS ORDERED: MAGOX 400400 MG PO (16:54)
[2021-01-31 19:45] VITALS: BP 156/67
--- NOTE | 2021-02-01 00:09 | NUR ---
PT ALERT AND ORIENTED X 4. MODIFIED INDEPENDENT IN ROOM. DRESSING TO LEFT FOOT C/D/I. PT C/O SOME MILD NAUSEA. REFUSED ZOFRAN. WANTED MILK TO TRY TO RELIEVE NAUSEA. PT DENIES PAIN. MELATONIN GIVEN AT HS PER PT REQUEST FOR SLEEP. PT APPEARS TO BE SLEEPING ON HOURLY ROUNDS.
[2021-02-01 09:04] VITALS: BP 139/53
--- NOTE | 2021-02-01 10:49 | NUR ---
PATIENT'S CARMELINA ATTENDED TRAINING ON WOUND CARE TODAY, AND VERBALIZED UNDERSTANDING OF ALL THE STEPS, PRECAUTIONS NOT TO GET THE FOOT WET IN THE SHOWER, AND WEIGHT BEARING PRECAUTIONS.
[2021-02-01] MEDS ORDERED: CIPRO500 M1 PO (11:21)
[2021-02-01] MEDS ORDERED: LINEZOLID600 MG PO (11:21)
[2021-02-01 11:48] VITALS: BP 153/57
--- NOTE | 2021-02-01 13:18 | NUR ---
PT DC'D HOME WITH HH STATES UNDERSTANDING OF FOLLOW UP APPOINTMENTS AND DRESSING CHANGE TO LLE. STATES UNDERSTANDING WELL.
== END 2021-02-01 12:27 | disposition home health service (06) | DRG 948 ==
PROVIDERS: Hospitalist; Nurse Practitioner Family; Specialist; ADMIT Physical Medicine & Rehabilitation; ATTEND Physical Medicine & Rehabilitation
DX: R53.81 Other malaise (principal); L03.116 Cellulitis of left lower limb; E44.1 Mild protein-calorie malnutrition; L02.612 Cutaneous abscess of left foot; L97.529 Non-pressure chronic ulcer of other part of left foot with unspecified severity; E11.42 Type 2 diabetes mellitus with diabetic polyneuropathy; I25.10 Atherosclerotic heart disease of native coronary artery without angina pectoris; N18.9 Chronic kidney disease, unspecified; I12.9 Hypertensive chronic kidney disease with stage 1 through stage 4 chronic kidney disease, or unspecified chronic kidney disease; E78.5 Hyperlipidemia, unspecified; E11.51 Type 2 diabetes mellitus with diabetic peripheral angiopathy without gangrene; D64.9 Anemia, unspecified; N18.30 Chronic kidney disease, stage 3 unspecified; F32.9 Major depressive disorder, single episode, unspecified; K21.9 Gastro-esophageal reflux disease without esophagitis; E55.9 Vitamin D deficiency, unspecified; I48.0 Paroxysmal atrial fibrillation; E11.22 Type 2 diabetes mellitus with diabetic chronic kidney disease; G31.84 Mild cognitive impairment of uncertain or unknown etiology; K52.9 Noninfective gastroenteritis and colitis, unspecified; R33.9 Retention of urine, unspecified; Z68.38 Body mass index [BMI] 38.0-38.9, adult; Z87.891 Personal history of nicotine dependence; Z79.82 Long term (current) use of aspirin; Z79.899 Other long term (current) drug therapy
CPT/HCPCS: 10112

== ENCOUNTER → 2021-02-27 | Outpatient (CLI) | payer OTHER ==
[~2021-02-27] MED LIST changes: +FLOMAX0.4 MG PO; +MAGOX 400400 MG PO; +MIRALAX17 GM PO; +VITAMIN D325 MC2 PO
== END ==
LOC: HYPER 11:07
PROVIDERS: ATTEND Emergency Medicine
DX: T81.89XA Other complications of procedures, not elsewhere classified, initial encounter (principal); E11.621 Type 2 diabetes mellitus with foot ulcer; L97.522 Non-pressure chronic ulcer of other part of left foot with fat layer exposed; S91.302D Unspecified open wound, left foot, subsequent encounter; E11.51 Type 2 diabetes mellitus with diabetic peripheral angiopathy without gangrene; E11.40 Type 2 diabetes mellitus with diabetic neuropathy, unspecified; E66.01 Morbid (severe) obesity due to excess calories; L84 Corns and callosities; H54.8 Legal blindness, as defined in USA; B35.1 Tinea unguium; M20.41 Other hammer toe(s) (acquired), right foot; M20.42 Other hammer toe(s) (acquired), left foot; I25.10 Atherosclerotic heart disease of native coronary artery without angina pectoris; Z85.6 Personal history of leukemia; Z95.1 Presence of aortocoronary bypass graft; Z87.891 Personal history of nicotine dependence; Z68.38 Body mass index [BMI] 38.0-38.9, adult; Z79.84 Long term (current) use of oral hypoglycemic drugs; X58.XXXD Exposure to other specified factors, subsequent encounter; Y92.238 Other place in hospital as the place of occurrence of the external cause; Y83.8 Other surgical procedures as the cause of abnormal reaction of the patient, or of later complication, without mention of misadventure at the time of the procedure

== ENCOUNTER → 2021-03-07 | Outpatient (CLI) | payer OTHER | LOC: HYPER 11:00 | PROVIDERS: ATTEND Emergency Medicine | DX: T81.89XD Other complications of procedures, not elsewhere classified, subsequent encounter (principal); E11.621 Type 2 diabetes mellitus with foot ulcer; L97.522 Non-pressure chronic ulcer of other part of left foot with fat layer exposed; L97.422 Non-pressure chronic ulcer of left heel and midfoot with fat layer exposed; S91.302D Unspecified open wound, left foot, subsequent encounter; E11.51 Type 2 diabetes mellitus with diabetic peripheral angiopathy without gangrene; E11.40 Type 2 diabetes mellitus with diabetic neuropathy, unspecified; L84 Corns and callosities; B35.1 Tinea unguium; M20.41 Other hammer toe(s) (acquired), right foot; M20.42 Other hammer toe(s) (acquired), left foot; I25.10 Atherosclerotic heart disease of native coronary artery without angina pectoris; H54.8 Legal blindness, as defined in USA; Z85.6 Personal history of leukemia; Z95.1 Presence of aortocoronary bypass graft; Z87.891 Personal history of nicotine dependence; Z79.84 Long term (current) use of oral hypoglycemic drugs; Z79.899 Other long term (current) drug therapy; X58.XXXD Exposure to other specified factors, subsequent encounter; Y83.8 Other surgical procedures as the cause of abnormal reaction of the patient, or of later complication, without mention of misadventure at the time of the procedure ==

== ENCOUNTER → 2021-03-26 | Outpatient (CLI) | payer OTHER | LOC: HYPER 10:33 | PROVIDERS: ATTEND Emergency Medicine | DX: T81.89XD Other complications of procedures, not elsewhere classified, subsequent encounter (principal); E11.621 Type 2 diabetes mellitus with foot ulcer; L97.522 Non-pressure chronic ulcer of other part of left foot with fat layer exposed; L97.422 Non-pressure chronic ulcer of left heel and midfoot with fat layer exposed; S91.302D Unspecified open wound, left foot, subsequent encounter; E11.51 Type 2 diabetes mellitus with diabetic peripheral angiopathy without gangrene; E11.40 Type 2 diabetes mellitus with diabetic neuropathy, unspecified; L84 Corns and callosities; B35.1 Tinea unguium; M20.41 Other hammer toe(s) (acquired), right foot; M20.42 Other hammer toe(s) (acquired), left foot; I25.10 Atherosclerotic heart disease of native coronary artery without angina pectoris; H54.8 Legal blindness, as defined in USA; Z85.6 Personal history of leukemia; Z95.1 Presence of aortocoronary bypass graft; Z87.891 Personal history of nicotine dependence; Z79.84 Long term (current) use of oral hypoglycemic drugs; Z79.899 Other long term (current) drug therapy; X58.XXXD Exposure to other specified factors, subsequent encounter; Y83.8 Other surgical procedures as the cause of abnormal reaction of the patient, or of later complication, without mention of misadventure at the time of the procedure ==

== ENCOUNTER → 2021-05-07 | Outpatient (CLI) | payer OTHER | LOC: HYPER 11:14 | PROVIDERS: ATTEND Emergency Medicine | DX: T81.89XD Other complications of procedures, not elsewhere classified, subsequent encounter (principal); E11.621 Type 2 diabetes mellitus with foot ulcer; L97.522 Non-pressure chronic ulcer of other part of left foot with fat layer exposed; L97.422 Non-pressure chronic ulcer of left heel and midfoot with fat layer exposed; S91.302D Unspecified open wound, left foot, subsequent encounter; L84 Corns and callosities; E11.51 Type 2 diabetes mellitus with diabetic peripheral angiopathy without gangrene; E11.40 Type 2 diabetes mellitus with diabetic neuropathy, unspecified; E66.01 Morbid (severe) obesity due to excess calories; B35.1 Tinea unguium; M20.41 Other hammer toe(s) (acquired), right foot; M20.42 Other hammer toe(s) (acquired), left foot; I25.10 Atherosclerotic heart disease of native coronary artery without angina pectoris; H54.8 Legal blindness, as defined in USA; Z85.6 Personal history of leukemia; Z95.1 Presence of aortocoronary bypass graft; Z87.891 Personal history of nicotine dependence; Z68.38 Body mass index [BMI] 38.0-38.9, adult; Z79.84 Long term (current) use of oral hypoglycemic drugs; X58.XXXD Exposure to other specified factors, subsequent encounter; Y83.8 Other surgical procedures as the cause of abnormal reaction of the patient, or of later complication, without mention of misadventure at the time of the procedure ==

== ENCOUNTER → 2021-05-24 | Outpatient (CLI) | payer OTHER | LOC: SJCVCIMAG 12:24 | PROVIDERS: ATTEND Nuclear Medicine Nuclear Cardiology | DX: I70.202 Unspecified atherosclerosis of native arteries of extremities, left leg (principal); I77.9 Disorder of arteries and arterioles, unspecified; I25.10 Atherosclerotic heart disease of native coronary artery without angina pectoris; E78.5 Hyperlipidemia, unspecified; I12.9 Hypertensive chronic kidney disease with stage 1 through stage 4 chronic kidney disease, or unspecified chronic kidney disease; N18.9 Chronic kidney disease, unspecified; E11.22 Type 2 diabetes mellitus with diabetic chronic kidney disease; E78.00 Pure hypercholesterolemia, unspecified; Z87.891 Personal history of nicotine dependence; Z79.82 Long term (current) use of aspirin; Z79.84 Long term (current) use of oral hypoglycemic drugs; Z79.899 Other long term (current) drug therapy; Z95.1 Presence of aortocoronary bypass graft; Z95.818 Presence of other cardiac implants and grafts ==